=== PATIENT | female | born 1960 | race Caucasian/White ===

== ENCOUNTER → 2024-11-03 | Day surgery (SDC) | payer OTHER ==
--- NOTE | 2024-11-03 11:13 | RAD REPORT ---
THYROID NODULE FNA PREPROCEDURE DIAGNOSIS: Right thyroid nodule. D44.0 PROCEDURE: Right thyroid nodule FNA. SPECIMEN: 7- 25-gauge FNA specimens of the right thyroid nodule. TECHNIQUE: Prior to the procedure , the risks and benefits of a thyroid FNA were explained with the patient sara morocho consented fully to the procedure. Real-time ultrasound was used to identify the dominant right thyroid nodule of interest.. The neck wa s then prepped and draped in the usual sterile fashion. Lidocaine was used to anesthetize the skin and soft tissues down towards the thyroid nodule. 7 separa te 25-gauge needles were then placed using ultrasound guidance into the nodule and specimen was obtained within the needle using a to and fro motion. These needles were placed in solution provided by pathology. The patient tolerated the procedure well without immediate post procedure complication. IMPRESSION: Technically successful ultrasound-guided FNA procedure right thyroid nodule.
== END ==
LOC: FNA 09:31
PROVIDERS: ATTEND Otolaryngology
PROC: 0G9H3ZX Drainage of Right Thyroid Gland Lobe, Percutaneous Approach, Diagnostic (ICD-10-PCS; principal; 2024-11-03)
DX: D44.0 Neoplasm of uncertain behavior of thyroid gland (principal)
CPT/HCPCS: 88162